=== PATIENT | male | born 1960 | race Caucasian/White ===

== ENCOUNTER 2017-08-31 01:18 | Emergency (ER) | payer OTHER ==
[~2017-08-31] VITALS: Ht 170.2 cm; Wt 72.5 kg
[2017-08-31 01:29] VITALS: Ht 170.2 cm; Wt 72.5 kg
[2017-08-31] MEDS ORDERED: ALPR0.25 PO (03:52)
--- NOTE | 2017-08-31 04:10 | ERD ---
ER Documentation Chief Complaint Date/Time DATE: 08/31/17 TIME: 04:04 Chief Complaint pt reports feeling nervous and unable to sleep HPI 57-year-old male presents to emergency department for complaints of anxiousness and insomnia inability to sleep tonight. Patient states that he has been having it on and off for the last year. Tonight, he could not sleep, feels very anxious. Patient denies any chest pain shortness of breath, denies any hallucinations or delusions. Patient denies any fever or chills. Patient denies any other symptoms. ROS All systems reviewed and are negative except as per history of present illness. Medications Home Meds Active Scripts Alprazolam* (Xanax*) 0.25 Mg Tablet, 0.25 MG PO Q8H Y for ANXIETY, #10 TAB Prov:LATOYA GUERRIER NP 08/31/17 Allergies Allergies: Coded Allergies: No Known Allergy (Unverified , 08/31/17) PMhx/Soc Medical and Surgical Hx: pt denies Medical Hx, pt denies Surgical Hx FmHx Family History: No coronary disease, No diabetes, No other Physical Exam Vitals Vital Signs Date Time Temp Pulse Resp B/P Pulse Ox O2 Delivery O2 Flow Rate FiO2 08/31/17 01:29 98.3 79 18 174/91 96 Physical Exam GENERAL: The patient is well developed and appropriate for usual state of health, in no apparent distress. CHEST: Clear to auscultation bilaterally. There are no rales, wheezes or rhonchi. HEART: Regular rate and rhythm. No murmurs, clicks, rubs or gallops. No S3 or S4. ABDOMEN: Soft, nontender and nondistended. Good bowel sounds. No rebound or guarding. No gross peritonitis. No gross organomegaly or masses. No Garrison sign or McBurney point tenderness. BACK: No midline or flank tenderness. EXTREMITIES: Equal pulses bilaterally. There is no peripheral clubbing, cyanosis or edema. No focal swelling or erythema. Full range of motion. Grossly neurovascularly intact. NEURO: Alert and oriented. Cranial nerves 2-12 intact. Motor strength in all 4 extremities with 5/5 strength. Sensation grossly intact. Normal speech and gait. SKIN: There is no apparent rash or petechia. The skin is warm and dry. HEMATOLOGIC AND LYMPHATIC: There is no evidence of excessive bruising or lymphedema. No gross cervical, axillary, or inguinal lymphadenopathy. Psychiatric: Patient is calm and cooperative, does not verbalize homicidal or suicidal ideations. Procedures/MDM Medical decision making: Patient symptoms was likely consistent with anxiety, no symptoms of any acute psychiatric emergencies, not homicidal, not suicidal. No symptoms of any cardiopulmonary emergencies at this time. Prescription was given for Xanax, was advised to follow-up with primary care doctor 1-2 days for reevaluation of symptoms. Patient was advised to return to emergency department for any worsening symptoms. Disposition: Home. Stable. Departure Diagnosis: Primary Impression: Anxiety Condition: Stable Patient Instructions: Anxiety Reaction LATOYA GUERRIER NP Aug 31, 2017 04:10
[2017-08-31 04:25] VITALS: BP 156/90; PULSE 88; RESP 18; TEMP 98.2
== END 2017-08-31 04:41 | disposition home or self-care (01) ==
LOC: FTE 01:18
DX: F41.9 Anxiety disorder, unspecified (principal)
CPT/HCPCS: 99283

== ENCOUNTER 2017-12-02 10:15 | Emergency (ER) | END 2017-12-02 13:26 | disposition home or self-care (01) ==

== ENCOUNTER 2018-01-19 19:28 | Emergency (ER) | END 2018-01-19 22:29 | disposition home or self-care (01) ==

== ENCOUNTER 2018-01-23 01:04 | Emergency (ER) | END 2018-01-23 04:19 | disposition home or self-care (01) ==